=== PATIENT | female | born 1935 | race Caucasian/White ===

== ENCOUNTER → 2021-01-06 | Outpatient (CLI) | payer OTHER | LOC: EXRD 08:08 | DX: Z78.0 Asymptomatic menopausal state (principal) | CPT/HCPCS: 77080 ==

== ENCOUNTER 2021-02-07 16:52 | Emergency (ER) | payer OTHER ==
[2021-02-07] MEDS ORDERED: PYRIDIUM200 MG PO (18:41)
[2021-02-07] MEDS ORDERED: CEPHALEXIN500 M1 PO (18:41)
== END 2021-02-07 18:48 | disposition home or self-care (01) ==
LOC: ER1 16:52
DX: R30.0 Dysuria (principal); R82.81 Pyuria; I10 Essential (primary) hypertension; Z88.5 Allergy status to narcotic agent
CPT/HCPCS: 81001; 87086; 99283